=== PATIENT | female | born 1960 ===

== ENCOUNTER 2025-02-21 23:26 | Emergency (ER) | payer OTHER, MEDICARE ==
[~2025-02-21] VITALS: Ht 162.6 cm; Wt 77.6 kg
[2025-02-21] MEDS ORDERED: LACTATED RINGER'S 1,000 ML IV ONE (23:45)
[2025-02-21 23:53] LABS: BASOPHILS 1.0 % (0.1-1.2); EOSINOPHILS 3.7 % (0.7-5.8); LYMPHOCYTES 38.1 % (19.3-51.7); MCH 30.0 PG (25.6-32.2); MCHC 33.9 g/dL (32.2-35.5); MCV 88.5 fL (79.4-94.8); MONOCYTES 6.7 % (4.7-12.5); NEUTROPHILS 50.3 % (34.0-71.1); RBC 4.10 M/uL (3.93-5.22)
[2025-02-22 00:08] LABS: ALCOHOL, MEDICAL 98.0 ng/dL (<3); ALT (SGPT) 25.0 U/L (14-59); AST (SGOT) 18.0 U/L (15-37); GLOMERULAR FILTRATION RATE,EST 65.0 mL/min (>60); PROTEIN, TOTAL 6.5 g/dL (6.4-8.2); UREA NITROGEN 23.0 mg/dL (7-18)
[2025-02-22] MEDS ORDERED: KETOROLAC TROMETHAMINE 15 MG/ML VIAL IV ONE (01:15)
[2025-02-22 02:54] LABS: AMPHETAMINES, URINE NEGATIVE (NEGATIVE); BARBITURATES, URINE NEGATIVE (NEGATIVE); BENZODIAZEPINE, URINE NEGATIVE (NEGATIVE); CANNABINOID, URINE NEGATIVE (NEGATIVE); COCAINE, URINE NEGATIVE (NEGATIVE); ECSTASY, URINE NEGATIVE (NEGATIVE); FENTANYL, URINE NEGATIVE (NEGATIVE); METHADONE, URINE NEGATIVE (NEGATIVE); OPIATES, URINE NEGATIVE (NEGATIVE); OXYCODONE, URINE NEGATIVE (NEGATIVE); PHENCYCLIDINE, URINE NEGATIVE (NEGATIVE)
[2025-02-22 04:08] VITALS: BP 121/74
== END 2025-02-22 04:12 | disposition home or self-care (01) ==
LOC: ED 23:26
PROVIDERS: Family Medicine
DX: F10.929 Alcohol use, unspecified with intoxication, unspecified (principal); Y90.4 Blood alcohol level of 80-99 mg/100 ml
CPT/HCPCS: 36415; 80053; 80307; 83735; 85025; 96361; 96374; 96375; 99285-25; G0480; J1885; J2405; J7121